=== PATIENT | male | born 1945 | race Caucasian/White ===

== ENCOUNTER 2016-06-28 15:26 | Outpatient (CLI) | payer MEDICARE ==
[2016-06-28 15:34] LABS: #Basophils 0.1 thou/uL (0.0-0.2); #Eosinphils 0.2 thou/uL (0.0-0.7); #Monocytes 1.2 thou/uL (0.11-0.59); #Neutrophils 7.9 thou/uL (1.40-6.50); %Basophils 0.8 % (0.0-1.0); %Eosinophils 1.9 % (0.0-10.0); %Monocytes 9.7 % (0.0-10.0); %Neutrophils 63.6 % (42.0-75.0); Hemoglobin 15.8 g/dL (14.0-18.0); Mean Corpuscular Hemoglobin 32.8 pg (27.0-31.0); Mean Corpuscular Volume 96.5 fl (80.0-94.0); Mean Platelet Volume 8.8 fL (7.4-10.4); Platelet Count 299 thou/uL (130-400); RBC Distribution Width 12.7 % (11.5-14.5); Red Blood Cell (RBC) Count 4.82 mill/uL (4.70-6.10); White Blood Cell (WBC) Count 12.4 thou/uL (4.8-10.8)
[2016-06-28 15:50] LABS: ALT (SGPT) 18 U/L (0-55); AST (SGOT) 18 U/L (5-34); Albumin 4.4 g/dL (3.4-4.8); Alkaline Phosphatase 82 U/L (40-150); Anion Gap 15 mmol/L (10-20); BUN (Urea Nitrogen) 24 mg/dL (8.4-25.7); Bilirubin, Total 0.9 mg/dL (0.2-1.2); Calc. Creatinine Clearance 0 mL/min (70-130); Calcium 9.7 mg/dL (7.8-10.44); Carbon Dioxide 29 mmol/L (23-31); Cardiac Risk 3.3 (Less than 4.5); Chloride 102 mmol/L (98-107); Cholesterol 150 mg/dL (< 200 Desired); Estimated GFR-MDRD 63; Globulin 2.6 g/dL (2.4-3.5); Glucose 97 mg/dL (80-115); HDL Cholesterol 45 mg/dL (>60 Neg Risk); LDL Cholesterol, Calculated 81 mg/dL; Potassium 4.8 mmol/L (3.5-5.1); Sodium 141 mmol/L (136-145); Triglycerides 122 mg/dL (Less than 150)
[2016-06-28 16:27] LABS: PSA-Asymptomatic (SCREENING) 0.75 ng/mL (0-4.0); Thyroid Stimulating Hormone 2.301 uIU/mL (0.35-4.94)
== END 2016-06-28 15:27 | disposition home or self-care (01) ==
LOC: HPCALD 15:26
PROVIDERS: ATTEND Family Medicine
DX: Z12.5 Encounter for screening for malignant neoplasm of prostate (principal); I10 Essential (primary) hypertension; E78.00 Pure hypercholesterolemia, unspecified; E29.1 Testicular hypofunction; R63.4 Abnormal weight loss
CPT/HCPCS: 80053; 80061; 84403; 84443; 85025; G0103

== ENCOUNTER 2017-02-07 15:51 | Outpatient (CLI) | payer MEDICARE ==
--- NOTE | 2017-02-07 21:32 | RAD ---
LEFT CLAVICLE TWO VIEWS: 02/07/2017 FINDINGS: No fracture or area of bony destruction is seen. The AC joint is not widened. No deformity of the c lavicle is seen. IMPRESSION: No significant finding. POS: HOME
== END 2017-02-07 15:52 | disposition home or self-care (01) ==
LOC: BURRAD 15:51
PROVIDERS: ATTEND Family Medicine
DX: M89.312 Hypertrophy of bone, left shoulder (principal)

== ENCOUNTER 2017-04-03 15:17 | Outpatient (CLI) | payer MEDICARE ==
--- NOTE | 2017-04-03 21:13 | RAD ---
LUMBAR SPINE THREE VIEWS: Date: 04-03-17 FINDINGS: No fracture or dislocation is seen. Degenerative disc disease is present at L5-S1 with disc space christiano rowing, large osteophytes, and sclerosis of endplates. Prominent anterior osteophytes are seen at oth er lumbar levels, particularly L2 and below. There is some mild sclerosis of each SI joint, but no wi dening of either. IMPRESSION: Degenerative changes, including degenerative disc disease at L5-S1 which appears to be significant in amount. POS: HOME
== END 2017-04-03 15:18 | disposition home or self-care (01) ==
LOC: BURRAD 15:17
PROVIDERS: ATTEND Family Medicine
DX: M47.26 Other spondylosis with radiculopathy, lumbar region (principal); M51.17 Intervertebral disc disorders with radiculopathy, lumbosacral region
CPT/HCPCS: 72100